=== PATIENT | female | born 1960 | race American Indian/Alaskan Native ===

== ENCOUNTER 2019-03-02 15:58 | Emergency (ER) | payer OTHER ==
--- NOTE | 2019-03-02 16:35 | Emergency Department Report ---
Blank Doc - Documentation Documentation: 58-year-old female that presents with URI symptoms. This initial assessment/diagnostic orders/clinical plan/treatment(s) is/are subject to change based on patient's health status, clinical progression and re- assessment by fellow clinical providers in the ED. Further treatment and workup at subsequent clinical providers discretion. Patient/guardians urged not to elope from the ED as their condition may be serious if not clinically assessed and managed. Initial orders include: 1- Patient sent to [facility] for further evaluation and treatment 2- cxr
[2019-03-02 16:36] VITALS: BP 158/88
--- NOTE | 2019-03-02 17:29 | XRay Report ---
CHEST 2 VIEWS INDICATION / CLINICAL INFORMATION: cough. COMPARISON: 04/03/2012 FINDINGS: SUPPORT DEVICES: None. HEART / MEDIASTINUM: No significant abnormality. LUNGS / PLEURA: No significant pulmonary or pleural abnormality. No pneumothorax. ADDITIONAL FINDINGS: No significant additional findings. IMPRESSION: No significant abnormality or interval change from 04/03/2012 Signer Name: Eloy Lovett MD FACR Signed: 03/02/2019 5:25 PM Workstation Name: [id number]
--- NOTE | 2019-03-02 20:49 | Emergency Department Report ---
Minor Respiratory - HPI Chief Complaint: Upper Respiratory Infection Stated Complaint: FLU LIKE SX Time Seen by Provider: 03/02/19 16:34 Duration: 1 week Pain Location: Throat Severity: moderate Minor Respiratory: Yes Rhinorrhea, Yes Sore Throat, Yes Able to Tolerate Fluids, Yes Cough, Yes Sick Contacts, Yes Fever, No Ear Pain, No Hemoptysis, No Chest Pain, No Shortness of Breath ED Review of Systems ROS: Stated complaint: FLU LIKE SX Other details as noted in HPI Constitutional: denies: chills, fever ENT: throat pain, congestion. denies: ear pain Respiratory: cough. denies: shortness of breath, wheezing Cardiovascular: denies: chest pain, palpitations Gastrointestinal: denies: abdominal pain, nausea, diarrhea Musculoskeletal: denies: back pain, joint swelling, arthralgia Skin: denies: rash, lesions Neurological: denies: headache, weakness, paresthesias Psychiatric: denies: anxiety, depression ED Past Medical Hx - Past Medical History Previous Medical History?: Yes Hx Hypertension: Yes Hx Congestive Heart Failure: No Hx Diabetes: No Hx Asthma: No Hx COPD: No - Surgical History Past Surgical History?: Yes Additional Surgical History: lumpectomy - Social History Smoking Status: Never Smoker Substance Use Type: None - Medications Home Medications: Home Medications Medication Instructions Recorded Confirmed Last Taken Type Benzonatate [Tessalon Perles] 100 mg PO Q8HR PRN #30 capsule 03/02/19 Unknown Rx Fluticasone [Flonase] 1 spray NS QDAY #1 bottle 03/02/19 Unknown Rx Prednisone [predniSONE 10 mg 10 mg PO .TAPER #1 tab.ds.pk 03/02/19 Unknown Rx (6-Day Pack, 21 Tabs)] Minor Respiratory Exam - Exam General: Vital signs noted. No distress. Alert and acting appropriately. HEENT: Yes Pharyngeal Erythema (erythematous posterior pharynx, uvula midline), Yes Moist Mucous Membranes, Yes Rhinorrhea (nares congested with clear discharge), No Pharyngeal Exudates, No Conjuctival Injection, No Frontal Tenderness, No Maxillary Tenderness Ear: Neither TM Bulge, Neither TM Erythema, Neither EAC Pain, Neither EAC Discharge Neck: Yes Supple, No Adenopathy Lungs: Yes Good Air Exchange, Yes Cough, No Wheezes, No Ronchi, No Stridor, No Labored Respirations, No Retractions, No Use of Accessory Muscles, No Other Abnormal Lung Sounds Heart: Yes Regular, No Murmur Abdomen: Yes Normal Bowel Sounds, No Tenderness, No Peritoneal Signs Skin: No Rash, No Edema Neurologic: Alert and oriented, no deficits. Musculoskeletal: Unremarkable. ED Course Vital Signs 03/02/19 16:34 Temperature 98.4 F Pulse Rate 78 Respiratory 18 Rate Blood Pressure 158/88 O2 Sat by Pulse 97 Oximetry ED Medical Decision Making - Radiology Data Radiology results: report reviewed CHEST 2 VIEWS INDICATION / CLINICAL INFORMATION: cough. COMPARISON: 04/03/2012 FINDINGS: SUPPORT DEVICES: None. HEART / MEDIASTINUM: No significant abnormality. LUNGS / PLEURA: No significant pulmonary or pleural abnormality. No pneumothorax. ADDITIONAL FINDINGS: No significant additional findings. IMPRESSION: No significant abnormality or interval change from 04/03/2012 - Medical Decision Making This is a 58 y.o. male that presents with sore throat, cough, and congestion for 1 week. Past medical history of HTN. Patient examined by me and stable. No distress noted. Vitals stable. X-ray obtained and dictated by radiologist with no significant abnormality or interval change from 04/03/2012. Acute pharyngitis. Start Medrol Dosepak, Flonase, and benzonatate. Take Tylenol or ibuprofen for pain. Discussed plan with patient and he agreed with plan to treat outpatient. Discharged home in stable condition. Return to work tomorrow. Follow up with PCP in 48-72 hours. Critical care attestation.: If time is entered above; I have spent that time in minutes in the direct care of this critically ill patient, excluding procedure time. ED Disposition Clinical Impression: Sore throat (viral) Acute pharyngitis Qualifiers: Pharyngitis/tonsillitis etiology: unspecified etiology Qualified Code(s): J02.9 - Acute pharyngitis, unspecified Disposition: TO HOME OR SELFCARE Is pt being admited?: No Condition: Stable Instructions: Pharyngitis (ED) Additional Instructions: Expect symptoms to improve within 3 or 4 days. There is no need for bed rest or isolation. Use Tylenol or ibuprofen for symptoms of sore throat, headache, and fever. Return to work in 24 hours of taking antibiotics. Follow up with Primary Care Provider in 48-72 hours. Prescriptions: Fluticasone [Flonase] 1 spray NS QDAY #1 bottle Prednisone [predniSONE 10 mg (6-Day Pack, 21 Tabs)] 10 mg PO .TAPER #1 tab.ds.pk Benzonatate [Tessalon Perles] 100 mg PO Q8HR PRN #30 capsule PRN Reason: Cough Referrals: [facility] [Provider Group] - 3-5 Days [facility] [Provider Group] - 3-5 Days DEEDEE CHOPRA MD [Staff Physician] - 3-5 Days Forms: Work/School Release Form(ED) Time of Disposition: 21:11
== END 2019-03-02 21:21 | disposition home or self-care (01) ==
LOC: ED 15:58
DX: J02.9 Acute pharyngitis, unspecified (principal); I10 Essential (primary) hypertension; Z98.890 Other specified postprocedural states; Z79.899 Other long term (current) drug therapy; Z88.6 Allergy status to analgesic agent
CPT/HCPCS: 71046

== ENCOUNTER 2019-05-02 08:32 | Emergency (ER) | payer OTHER ==
[2019-05-02 08:49] VITALS: BP 173/72
[2019-05-02] MEDS ORDERED: traMADol 50 MG TAB PO ONE (10:09)
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
== END 2019-05-02 12:30 | disposition home or self-care (01) ==
LOC: ED 08:32
DX: S39.012A Strain of muscle, fascia and tendon of lower back, initial encounter (principal); M25.511 Pain in right shoulder; R51 Headache; Y04.2XXA Assault by strike against or bumped into by another person, initial encounter; Y93.89 Activity, other specified; Y92.89 Other specified places as the place of occurrence of the external cause; Y99.8 Other external cause status
CPT/HCPCS: 72100

== ENCOUNTER 2021-08-02 07:39 | Emergency (ER) | payer OTHER ==
[2021-08-02] MEDS ORDERED: fentaNYL 100 MCG/2 ML INJ IM ONE (08:01)
[2021-08-02] MEDS ORDERED: ONDANSETRON 4 MG/2 ML INJ IM ONE (08:01)
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
--- NOTE | 2021-08-02 08:46 | Cat Scan Report ---
NONENHANCED CT SCAN OF THE HEAD: INDICATION / CLINICAL INFORMATION: 61 years Female; Pain after fall. TECHNIQUE: Routine CT head without contrast. All CT scans at this location are performed using CT dos e reduction for ALARA by means of automated exposure control. COMPARISON: CT scan of the head from 11/25/2017 FINDINGS: BRAIN / INTRACRANIAL CONTENTS: No intracranial sequela from the trauma; no scalp hematoma; no fluid l evel in the paranasal sinuses No acute hemorrhage, mass effect, midline shift, hydrocephalus, or acute, large territorial infarct. Chronic ischemic changes in the corpus striatum bilaterally more on the left side due to chronic sma ll vessel disease; focal low-attenuation areas in the periventricular and deep hemispheric white ed er due to chronic small vessel disease. High convexity cortical sulci are normal. No significant whit e matter abnormality. CRANIOCERVICAL JUNCTION: No significant abnormality. ORBITS: No significant abnormality of visualized orbits. SINUSES / MASTOIDS: No significant abnormality of the visualized paranasal sinuses or mastoid air erin ls. ADDITIONAL FINDINGS: Calcification in the cartilaginous external auditory canal bilaterally; nonobstr uctive calcinosis in both parotid glands, both in superficial and deep lobes; IMPRESSION: No intracranial sequela from the trauma Signer Name: Libra Gomez MD Signed: 08/02/2021 8:41 AM Workstation Name: [email or web address]
--- NOTE | 2021-08-02 08:54 | Cat Scan Report ---
CT CERVICAL SPINE History: Pain after fall; Technique: Contiguous thin cut axial images obtained through the cervical spine. Sagittal and mirza l reconstructions performed by the technologist. All CT scans at this location are performed using CT dose reduction for ALARA by means of automated exposure control. Findings: No priors. There is no evidence of fracture or traumatic subluxation. Vertebral bodies: Incidental low-attenuation area in the midportion of C3 vertebral body with sharp b orders; appears to be benign Intervertebral disc spaces: C3-C4: Grade 1 anterolisthesis; mild left foraminal stenoses C4-C5: Trace anterolisthesis; uncovertebral joint hypertrophy on the right side; neuroforamina are no rmal C5-C6: Bony spur; neuroforamina are normal No significant degenerative change seen in the uncinate or facet joints. No significant canal stenosi s or osseous foraminal narrowing. Benign-appearing mixed lesion in the left side of the mandible near the symphysis Impression: No signs of acute bony trauma to the cervical spine. Benign-appearing lesion in the mandible on the left side of midline anteriorly Signer Name: Libra Gomez MD Signed: 08/02/2021 8:49 AM Workstation Name: [id number]
--- NOTE | 2021-08-02 09:59 | XRay Report ---
THORACIC SPINE 3 VIEWS INDICATION: Pain after fall. COMPARISON: None. IMPRESSION: Normal alignment. Mild multilevel discogenic DJD is present. No acute osseous or soft tissue abnormality. LUMBOSACRAL SPINE 3 VIEWS INDICATION: Pain after fall. COMPARISON: None. IMPRESSION: There is mild levocurvature of the lumbar spine on the frontal view. There is 5 mm anter olisthesis of L5 with respect to the sacrum on the lateral view. The remaining lumbar vertebra are no rmal in alignment. Mild to moderate discogenic DJD and facet arthropathy is identified at all levels . No acute osseous or soft tissue abnormality. LEFT HAND 3 VIEWS INDICATION: Pain after fall. COMPARISON: None. IMPRESSION: No acute osseous or soft tissue abnormality. No significant DJD. Signer Name: Aashish Gutierrez Jr, MD Signed: 08/02/2021 9:54 AM Workstation Name: [id number]
[2021-08-02 10:29] VITALS: BP 133/71
== END 2021-08-02 11:21 | disposition home or self-care (01) ==
LOC: ED 07:39
DX: S16.1XXA Strain of muscle, fascia and tendon at neck level, initial encounter (principal); S09.90XA Unspecified injury of head, initial encounter; S29.012A Strain of muscle and tendon of back wall of thorax, initial encounter; S39.012A Strain of muscle, fascia and tendon of lower back, initial encounter; S60.222A Contusion of left hand, initial encounter; I10 Essential (primary) hypertension; W19.XXXA Unspecified fall, initial encounter; Y93.89 Activity, other specified; Y92.89 Other specified places as the place of occurrence of the external cause; Y99.8 Other external cause status
CPT/HCPCS: 70450; 72072; 72100; 72125; 73130; 96372; 99284; J2405; J3010